=== PATIENT | female | born 1970 | race Caucasian/White ===

== ENCOUNTER 2021-03-03 16:23 | Emergency (ER) | payer OTHER, SELFPAY ==
--- NOTE | 2021-03-03 16:27 | ED.EAR ---
HPI - Ear Problem General Chief complaint: Ear Stated complaint: Ear Pain Time Seen by Provider: 03/03/21 16:27 Source: patient and RN notes reviewed History of Present Illness HPI Narrative: Patient is a 50-year-old female who presents the urgent care with complaints of bilateral ear pressure, worse on the right. Patient states that it started yesterday. Denies of any other upper respiratory symptoms such as sore throat, postnasal drainage or fever. Patient states that she is flying tomorrow and does not want it to get worse. No other acute complaints. No acute distress noted. Patient aware of the plan of care. Some parts of this dictation were generated by voice recognition software and may contain typographical and/or grammatical inaccuracies. Related Data Home Medications Medication Instructions Recorded Confirmed methylphenidate HCl 20 mg PO DAILY 03/03/21 03/03/21 Allergies Allergy/AdvReac Type Severity Reaction Status Date / Time Sulfa (Sulfonamide Allergy Swelling Verified 03/03/21 16:43 Antibiotics) sulfamethoxazole Allergy Swelling Verified 03/03/21 16:40 [From Bactrim] trimethoprim [From Bactrim] Allergy Swelling Verified 03/03/21 16:40 Review of Systems Review of Systems: CONSTITUTIONAL: Denies fever, chills, or sweats. EYES: Denies visual changes, redness, or discharge. ENT: Denies rhinorrhea, congestion, sore throat. Reports of bilateral otalgia CARDIOVASCULAR: Denies chest pain, palpitations, or edema. RESPIRATORY: Denies cough or dyspnea. GASTROINTESTINAL: Denies abdominal pain, nausea, vomiting, or diarrhea. GENITOURINARY: Denies dysuria or hematuria. SKIN: Denies rash or itching. MUSCULOSKELETAL: Denies back pain, joint pain, or myalgia. NEUROLOGIC: Denies headache, numbness, or weakness. All other systems reviewed are negative, except as documented in HPI. PMFSH Comments At the time of my signature, I reviewed and agree with the nursing past medical, surgical, social, and family history. There is no relevant family history pertinent to the patient complaint. Exam Narrative: GENERAL: This is a well-nourished, well-developed patient, in no apparent distress. HEAD: normocephalic, atraumatic. EYES: PERRL. Sclera clear/white. Vision is grossly intact. EARS: External ears normal, auditory canals clear and without drainage, mild fluid noted behind bilateral TMs without otitis, TMs normal without perforation. Hearing grossly intact. NOSE: External nose normal with no obvious nasal discharge, nares without redness, no rhinorrhea. THROAT: Mucous membranes moist, posterior pharynx clear. Mild postnasal drainage NECK: Neck supple CARDIOVASCULAR: Regular rate and rhythm without murmurs, gallops, or rubs. RESPIRATORY: Clear to auscultation. Breath sounds equal bilaterally. No wheezes, rales, or rhonchi. SKIN: warm, intact with no suspicious lesions or rash, good texture and turgor. NEURO: awake, alert, and oriented to person, place and time. There were no obvious focal neurologic abnormalities. EXTREMITIES: No clubbing, cyanosis, or edema. Course Vital Signs Vital signs: Vital Signs Temperature 98 F 03/03/21 16:37 Pulse Rate 68 03/03/21 16:37 Respiratory Rate 16 03/03/21 16:37 Blood Pressure 125/90 03/03/21 16:37 Pulse Oximetry 100 03/03/21 16:37 Temperature 98 F 03/03/21 16:40 Pulse Rate 68 03/03/21 16:40 Respiratory Rate 16 03/03/21 16:40 Blood Pressure 125/90 03/03/21 16:40 Pulse Oximetry 100 03/03/21 16:40 Reviewed Medical Decision Making MDM Narrative Medical decision making narrative: Advised the patient to use an [id number] antihistamine prior to bed such as Benadryl/Zyrtec/Claritin in conjunction with Flonase nasal spray. Typically the fluid behind the ears/pressure will clear up with [id number] medication. However since you are flying tomorrow, will treat with steroid regimen. Advised the patient to start the steroids if her pr
[2021-03-03 16:37] VITALS: BP 125/90; PULSE 68; RESP 16; TEMP 36.6; O2SAT 100
[2021-03-03 16:40] VITALS: BP 125/90; PULSE 68; RESP 16; TEMP 36.6; O2SAT 100
== END 2021-03-03 16:50 | disposition home or self-care (01) ==
PROVIDERS: Emergency Provider Nurse Practitioner Family
DX: H92.03 Otalgia, bilateral (principal); F90.9 Attention-deficit hyperactivity disorder, unspecified type
CPT/HCPCS: 99213; G0463

== ENCOUNTER 2021-06-13 09:57 | Emergency (ER) | payer OTHER, SELFPAY ==
--- NOTE | 2021-06-13 10:02 | ED.URI ---
HPI - URI/Sore Throat General Chief Complaint: Upper Respiratory Infection Stated Complaint: stuffy nose / off work 7 days Time Seen by Provider: 06/13/21 10:02 Source: patient and RN notes reviewed History of Present Illness HPI Narrative: Patient is a 51-year-old female who presents the urgent care with concerns for not being able to go back to work. Patient states that a week ago on Saturday she stayed home from work for a headache and mild congestion. Patient states that her COVID test have been negative and she has felt 100% since this weekend. Patient states she attempted to go back to work this morning and they told her that she needed a return to work note . Patient states that over the last 24 hours she has felt well without any upper respiratory complaints. No acute distress noted. Patient aware of the plan of care. Some parts of this dictation were generated by voice recognition software and may contain typographical and/or grammatical inaccuracies. Related Data Home Medications Medication Instructions Recorded Confirmed methylphenidate HCl 20 mg PO DAILY 03/03/21 03/03/21 Allergies Allergy/AdvReac Type Severity Reaction Status Date / Time Sulfa (Sulfonamide Allergy Swelling Verified 06/13/21 10:24 Antibiotics) sulfamethoxazole Allergy Swelling Verified 06/13/21 10:24 [From Bactrim] trimethoprim [From Bactrim] Allergy Swelling Verified 06/13/21 10:24 Review of Systems Review of Systems: CONSTITUTIONAL: Denies fever, chills, or sweats. EYES: Denies visual changes, redness, or discharge. ENT: Denies rhinorrhea, congestion, sore throat, or otalgia. CARDIOVASCULAR: Denies chest pain, palpitations, or edema. RESPIRATORY: Denies cough or dyspnea. GASTROINTESTINAL: Denies abdominal pain, nausea, vomiting, or diarrhea. GENITOURINARY: Denies dysuria or hematuria. SKIN: Denies rash or itching. MUSCULOSKELETAL: Denies back pain, joint pain, or myalgia. NEUROLOGIC: Denies headache, numbness, or weakness. All other systems reviewed are negative, except as documented in HPI. PMFSH Comments At the time of my signature, I reviewed and agree with the nursing past medical, surgical, social, and family history. There is no relevant family history pertinent to the patient complaint. Exam Narrative: GENERAL: This is a well-nourished, well-developed patient, in no apparent distress. HEAD: normocephalic, atraumatic. EYES: PERRL. Sclera clear/white. Vision is grossly intact. EARS: External ears normal, auditory canals clear and without drainage, TMs normal without perforation. Hearing grossly intact. NOSE: External nose normal with no obvious nasal discharge, nares without redness, no rhinorrhea. THROAT: Mucous membranes moist, posterior pharynx clear. Mild postnasal drainage NECK: Neck supple, non-tender without lymphadenopathy, masses or thyromegaly. CARDIOVASCULAR: Regular rate and rhythm without murmurs, gallops, or rubs. RESPIRATORY: Clear to auscultation. Breath sounds equal bilaterally. No wheezes, rales, or rhonchi. SKIN: warm, intact with no suspicious lesions or rash, good texture and turgor. NEURO: awake, alert, and oriented to person, place and time. There were no obvious focal neurologic abnormalities. EXTREMITIES: No clubbing, cyanosis, or edema. Course Course Level of Care: Express Care Visit Vital Signs Vital signs: Vital Signs Temperature 98.2 F 06/13/21 10:12 Pulse Rate 84 06/13/21 10:12 Respiratory Rate 16 06/13/21 10:12 Blood Pressure 140/77 06/13/21 10:12 Pulse Oximetry 100 06/13/21 10:12 Temperature 98.2 F 06/13/21 10:12 Pulse Rate 84 06/13/21 10:12 Respiratory Rate 16 06/13/21 10:12 Blood Pressure 140/77 06/13/21 10:12 Pulse Oximetry 100 06/13/21 10:12 Reviewed MDM - URI/Sore Throat MDM Narrative Medical decision making narrative: There is no concerns medically, that patient needs to stay home from work. Patient had a well visit exam. If patien
[2021-06-13 10:12] VITALS: BP 140/77; PULSE 84; RESP 16; TEMP 36.8; O2SAT 100
== END 2021-06-13 10:35 | disposition home or self-care (01) ==
PROVIDERS: Emergency Provider Nurse Practitioner Family
DX: Z71.1 Person with feared health complaint in whom no diagnosis is made (principal); F90.9 Attention-deficit hyperactivity disorder, unspecified type
CPT/HCPCS: 99211; G0463